=== PATIENT | male | born 1960 | race Caucasian/White ===

== ENCOUNTER → 2020-07-27 | Outpatient (CLI) | payer SELFPAY ==
[~2020-07-27] MED LIST: ALBU90OI INH; ATENOLOL; CHLO25 PO; CLON.1 PO; CODGUAEL PO; ERYSTE250 PO; FISH1000 PO; FLUO10; FLUO20 PO; HYDACE5 PO; LISHYD2025; LISNOPRIL PO; MECL25; PARO30; RXCLIN PO; RXHYDACE PO; TRAM50 PO; VENL25 PO; VENL75
== END ==
LOC: LAB 14:30 → LAB SHORT 14:30
DX: L01.00 Impetigo, unspecified (principal); Z88.0 Allergy status to penicillin
CPT/HCPCS: 87070; 87077; 87147; 87186; 87205

== ENCOUNTER 2021-07-25 16:54 | Observation (INO) | payer OTHER ==
[~2021-07-25] VITALS: Ht 177.8 cm; Wt 86.2 kg
[2021-07-25 18:05] LABS: BASOPHILS ABSOLUTE AUTO 0.06 K/mm3 (0.00-0.23); BASOPHILS PERCENT AUTO 1 % (0-2); EOSINOPHILS ABSOLUTE AUTO 0.06 K/mm3 (0.00-0.68); EOSINOPHILS PERCENT AUTO 1 % (0-6); Hematocrit 39.4 % (37.0-53.0); Hemoglobin 13.7 g/dL (13.5-17.5); IMMATURE GRAN ABSOLUTE AUTO 0.02 K/mm3 (0.00-0.10); IMMATURE GRAN PERCENT AUTO 0 % (0-1); LYMPHOCYTES ABSOLUTE AUTO 1.54 K/mm3 (0.84-5.20); LYMPHOCYTES PERCENT AUTO 27 % (21-46); MONOCYTES ABSOLUTE AUTO 1.03 K/mm3 (0.16-1.47); MONOCYTES PERCENT AUTO 18 % (4-13); Mean Corpuscular HGB 31.1 pg (26.0-34.0); Mean Corpuscular HGB Conc 34.8 g/dL (31.5-36.5); Mean Corpuscular Volume 89 fL (80-100); Mean Platelet Volume 9.5 fL (9.1-12.4); NEUTROPHILS ABSOLUTE AUTO 3.09 K/mm3 (1.96-9.15); NEUTROPHILS PERCENT AUTO 53 % (41-73); Platelet Count 285 K/mm3 (150-400); RDW Coefficient Variation 12.4 % (11.7-14.2); RDW Standard Deviation 40.5 fL (35.1-46.3); Red Blood Cell Count 4.41 M/mm3 (4.30-5.90)
[2021-07-25 18:17] LABS: Ethanol (Alcohol), Blood, Med <3 mg/dL
[2021-07-25 18:18] LABS: Salicylate 1.9 mg/dL (2.8-20.0)
[2021-07-25 18:20] LABS: Acetaminophen, Random <2.0 ug/mL (10.0-30.0); Alanine Aminotransfer (ALT/SGP 49 U/L (12-78); Albumin, Blood 3.8 g/dL (3.4-5.0); Alk Phos 87 U/L (50-136); Anion Gap 5 mmol/L (6-16); Aspartate Aminotrans (AST/SGOT 38 U/L (12-37); Bilirubin, Total 0.5 mg/dL (0.1-1.0); Blood Urea Nitrogen 11 mg/dL (8-24); Bun/Creatinine Ratio 18.6 (12.0-20.0); CO2, Blood 27 mmol/L (21-32); Chloride, Blood 104 mmol/L (98-108); Creatinine, Blood 0.59 mg/dL (0.60-1.20); Globulin, Blood 3.8 g/dL (2.2-4.0); Glomerular Filtration Rate 112 (60-); Glucose, Blood 116 mg/dL (70-99); Potassium, Blood 3.6 mmol/L (3.5-5.5); Sodium, Blood 136 mmol/L (136-145); Total Protein, Blood 7.6 g/dL (6.4-8.2)
[2021-07-25] MEDS ORDERED: ZYRTEC10 M2 PO (18:42)
[2021-07-25] MEDS ORDERED: Vitamin D1000 UNI1 PO (18:43)
[2021-07-25] MEDS ORDERED: ALEVAZOL56.7 G1 TOP (18:45)
[2021-07-25] MEDS ORDERED: B-12500 MC2 PO (18:45)
[2021-07-25] MEDS ORDERED: DIVA500EC PO (18:46)
[2021-07-25] MEDS ORDERED: ESCI10 PO (18:48)
[2021-07-25] MEDS ORDERED: HYDHCL25 PO (18:48)
[2021-07-25] MEDS ORDERED: Hair, Skin & N1 EACH PO (18:50)
[2021-07-25] MEDS ORDERED: [UNRECOGNIZED DRUG - MIXTURE] (18:50)
[2021-07-25] MEDS ORDERED: Naltrexone HCl50 MG PO (18:51)
[2021-07-25] MEDS ORDERED: OLAN5A PO (18:51)
[2021-07-25] MEDS ORDERED: TRAZ50 PO (18:52)
[2021-07-25 21:02] LABS: Influenza A, PCR NEGATIVE (NEGATIVE); Influenza B, PCR NEGATIVE (NEGATIVE); Resp Syncytial Virus, PCR NEGATIVE (NEGATIVE)
[2021-07-25 21:05] LABS: SARS-Cov-2 (COVID-19) PCR, MMC POSITIVE (NEGATIVE)
[2021-07-26 01:17] LABS: Source, Urine Voided
[2021-07-26 01:30] LABS: Bilirubin, Urine Neg (Neg); Blood, Urine 1+ (Neg); Glucose Qualitative, Urine Neg (Neg); Ketones, Urine Neg (Neg); Leukocyte Esterase, Urine Neg (Neg); Nitrite, Urine Neg (Neg); Protein, Urine Neg (Neg); Specific Gravity, Urine 1.015 (1.003-1.022); Urobilinogen, Urine NORM (Normal)
[2021-07-26 01:37] LABS: Appearance, Urine Clear (Clear); Color, Urine Yellow (P-Yellow)
[2021-07-26 01:38] LABS: Bacteria Rare /hpf; Red Blood Cells, Urine 0-2 /hpf (0-2); Squamous Epithelial Cells Rare /hpf (Few); White Blood Cells, Urine Rare /hpf (0-5)
[2021-07-26 01:40] LABS: U Amphetamine Screen DETECTED; U Barbituate Screen Not Detected; U Benzodiazapine Screen Not Detected; U Buprenorphine Screen Not Detected; U Cannabinoids Screen DETECTED; U Cocaine Screen Not Detected; U Methadone Screen Not Detected; U Methamphetamine Screen DETECTED; U Opiates Screen Not Detected; U Oxycodone Screen Not Detected; U Phencyclidine Screen Not Detected; U Propoxyphene Screen Not Detected
[2021-07-26] MEDS ORDERED: HYDHCL25 PO (13:24)
[2021-07-26] MEDS ORDERED: ZYRTEC10 M2 PO (13:24)
[2021-07-26] MEDS ORDERED: Naltrexone HCl50 MG PO (13:24)
[2021-07-26] MEDS ORDERED: B-12500 MC2 PO (13:24)
[2021-07-26] MEDS ORDERED: TRAZ50 PO (13:24)
[2021-07-26] MEDS ORDERED: OLAN5A PO (13:24)
[2021-07-26] MEDS ORDERED: DIVA500EC PO (13:24)
== END 2021-07-26 15:58 | disposition home or self-care (01) ==
LOC: ER 16:54 → EOR 16:55
PROVIDERS: ADMIT Emergency Medicine
DX: F29 Unspecified psychosis not due to a substance or known physiological condition (principal); U07.1 COVID-19; R45.851 Suicidal ideations; I10 Essential (primary) hypertension; Z88.0 Allergy status to penicillin; Z79.899 Other long term (current) drug therapy; Z91.14 Patient's other noncompliance with medication regimen
CPT/HCPCS: 0241U; 80053; 81001; 85025; 86592; 93005; 93010; 99285-25; A9270; G0378; G0480; Q3014